=== PATIENT | female | born 1955 | race Caucasian/White ===

== ENCOUNTER 2017-01-25 16:04 | Emergency (ER) | payer OTHER ==
--- NOTE | 2017-01-25 16:22 | EDPHY ---
H & P Stated Complaint: red swollen feet Time Seen by Provider: 01/25/17 16:20 HPI/ROS: CHIEF COMPLAINT: Left foot redness and swelling HISTORY OF PRESENT ILLNESS: 61-year-old female presents to the emergency department complaining of foot redness and swelling that started while she was at work yesterday. Patient states she woke up this morning with continued symptoms that have worsened throughout the day. Foot is aching and burning. She reports pain up her calf. Patient reports 2 days of fatigue, mild nausea. She denies shortness of breath or chest pain. Patient went to urgent care prior to coming to the emergency department and states she had a temperature of a 100degrees at Urgent Care. She denies recent cough or cold. Patient noticed a rash to the top of her right foot today. Patient with a history of sarcoidosis , hypertension, type 2 diabetes, uterine cancer. She is on oxygen at night. Patient denies orthopnea. Patient reports she was driving in [place] 4 days ago and played [employer] golf. Pt denies any known tick or bug bites. REVIEW OF SYSTEMS: A comprehensive 10 point review of systems is otherwise negative aside from elements mentioned in the history of present illness. Source: Patient Exam Limitations: No limitations - Personal History Current Tetanus/Diphtheria Vaccine: Unsure Current Tetanus Diphtheria and Acellular Pertussis (TDAP): Unsure - Medical/Surgical History Hx Asthma: No Hx Chronic Respiratory Disease: No Hx Diabetes: Yes Hx Cardiac Disease: No Hx Renal Disease: No Hx Cirrhosis: No Hx Alcoholism: No Hx HIV/AIDS: No Hx Splenectomy or Spleen Trauma: No Other PMH: sarcoidosis, DM2 uterineCA, cataracts , HTN - Social History Smoking Status: Never smoked Alcohol Use: None Drug Use: None - Physical Exam Exam: Physical Exam Gen: Alert and Oriented, NAD HEENT: PERRL, moist mucous membranes NECK: no meningismus CV: regular rate and regular rhythm PULM: CTAB, no wheezes ABDOMEN: Morbidly obese, soft, non tender to palpation, BS present BACK: No CVA tenderness NEURO: Neurologically grossly intact EXTREMITIES: Left foot with swelling, induration, erythema, warmth, tender to palpate, left calf with tenderness to palpation, 2+ pedal pulses, sensation intact to light touch, dorsal distal aspect of right foot with petechial rash, no calf swelling or tenderness, 2+ pedal pulses. SKIN: no rash or break in skin on exposed skin PSYCH: answers questions appropriately. Constitutional: Initial Vital Signs Temperature (C) 36.9 C 01/25/17 16:08 Heart Rate 88 01/25/17 16:08 Respiratory Rate 16 01/25/17 16:08 Blood Pressure 102/70 01/25/17 16:08 O2 Sat (%) 93 01/25/17 16:08 O2 Delivery Mode Room Air Allergies/Adverse Reactions: terfenadine [From Seldane] Allergy (Unknown, Verified 10/04/12 10:59) amoxicillin trihydrate [From Augmentin] Allergy (Verified 10/04/12 10:59) Itching potassium clavulanate [From Augmentin] Allergy (Verified 10/04/12 10:59) Itching Home Medications: Medication Instructions Recorded Acetaminophen [Pain Relief] 500 - 1,000 mg PO Q4 PRN 10/05/12 Bisoprolol Fumarate 10 mg PO DAILY@199910/05/12 Calcium Carbonate [Tums 500MG 500 mg PO DAILY PRN 10/05/12 (OTC)] Cholecalciferol Vit D3 [Vitamin D3 5,000 units PO DAILY 10/05/12 1000 units (OTC)] DULoxetine [Cymbalta 30 MG (RX)] 30 mg PO DAILY@1700 10/05/12 Referral Management Liaison Completed 10/05/12 10/05/12 Rosuvastatin Calcium [Crestor 20mg 20 mg PO DAILY@2330 10/05/12 (RX)] Saxagliptin HCl/Metformin HCl 1 each PO DAILY@0900 10/05/12 [Kombiglyze Xr 5-1,000 Mg Tab] Triamterene/Hctz 75/50 [Maxzide 0.5 tab PO DAILY@199910/05/12 75-50 mg Tab (RX)] Cephalexin [Keflex] 500 mg PO QID 5 Days 01/25/17 Medical Decision Making - Diagnostics Imaging Results: Imaging Impressions Extremity Venous Study 01/25/17 16:37 Impression: No evidence of deep vein thrombosis. Findings discussed with Mahnaz George NP 01/25/2017 at 17:58. Imaging: Discussed imaging studies w/ inbound call center agent Radiologist ED Course/Re-evaluation: IV established, CBC and chemistry panel obtained, ultrasound of left lower extremity ordered. WBC is mildly elevated at 11,000 thousand, platelets are normal. Chemistry is unremarkable aside from a glucose that is elevated at 232. Patient is afebrile , nontoxic-appearing. I spoke with Dr. Lan with Radiology, ultrasound of the left lower extremity is negative for DVT. I have ordered 650 mg of Tylenol orally. The patient received a g of Ancef IV in the emergency department and was discharged with a prescription for Keflex. She has no evidence of [place] spotted fever or disseminated gonococcal infection. The rash on the dorsal aspect of her feet is likely due to pressure from her shoes and her obesity. I have recommended rest, elevation of her legs. Patient will follow up with her primary care doctor in 2 days for re- evaluation. She is given return precautions for worsening symptoms, new symptoms or concerns. Differential Diagnosis: Diagnosis considered but not limited to DVT, cellulitis, CHF, vasculitis, fracture, Bob cyst. - Data Points Laboratory Results: Laboratory Results 01/25/17 16:55 01/25/17 16:55 01/25/17 01/25/17 16:55 16:55 WBC 11.47 10^3/uL H 10^3/uL (3.80-9.50) RBC 4.43 10^6/uL 10^6/uL (4.18-5.33) Hgb 13.7 g/dL g/dL (12.6-16.3) Hct 40.5 % % (38.0-47.0) MCV 91.4 fL fL (81.5-99.8) MCH 30.9 pg pg (27.9-34.1) MCHC 33.8 g/dL g/dL (32.4-36.7) RDW 13.0 % % (11.5-15.2) Plt Count 358 10^3/uL 10^3/uL (150-400) MPV 9.2 fL fL (8.7-11.7) Neut % (Auto) 69.3 % % (39.3-74.2) Lymph % (Auto) 20.6 % % (15.0-45.0) [place] % (Auto) 7.3 % % (4.5-13.0) Eos % (Auto) 2.1 % % (0.6-7.6) Baso % (Auto) 0.3 % % (0.3-1.7) Nucleat RBC Rel Count 0.0 % % (0.0-0.2) Absolute Neuts (auto) 7.94 10^3/uL H 10^3/uL (1.70-6.50) Absolute Lymphs (auto) 2.36 10^3/uL 10^3/uL (1.00-3.00) Absolute Monos (auto) 0.84 10^3/uL H 10^3/uL (0.30-0.80) Absolute Eos (auto) 0.24 10^3/uL 10^3/uL (0.03-0.40) Absolute Basos (auto) 0.04 10^3/uL 10^3/uL (0.02-0.10) Absolute Nucleated RBC 0.00 10^3/uL 10^3/uL (0-0.01) Immature Gran % 0.4 % % (0.0-1.1) Immature Gran # 0.05 10^3/uL 10^3/uL (0.00-0.10) Sodium 136 mEq/L mEq/L (134-144) Potassium 4.1 mEq/L mEq/L (3.5-5.2) Chloride 99 mEq/L mEq/L (97-110) Carbon Dioxide 22 mEq/l mEq/l (22-31) Anion Gap 15 mEq/L mEq/L (8-16) BUN 17 mg/dL mg/dL (7-23) Creatinine 0.6 mg/dL mg/dL (0.6-1.0) Estimated GFR > 60 Glucose 232 mg/dL H mg/dL (70-100) Calcium 10.0 mg/dL mg/dL (8.5-10.4) Departure - Departure Disposition: Home, Routine, Self-Care Clinical Impression: Cellulitis of left foot Condition: Good Instructions: Cellulitis (ED) Additional Instructions: Rest, elevate your foot as much as possible over the next 5 days. Take 500mg of keflex four times per day for 5 days. Follow up with your primary care doctor on Monday for re-evaluation, call tomorrow to schedule this. Return to the emergency department for worsening symptoms, new symptoms or concerns. Referrals: Tamara Jama MD [Primary Care Provider] - As per Instructions Stand Alone Forms: Work Excuse Prescriptions: Cephalexin [Keflex] 500 mg PO QID 5 Days
[2017-01-25 17:06] LABS: % IMMATURE GRANULYOCYTES 0.4 % (0.0-1.1); ABSOLUTE IMMATURE GRANULOCYTES 0.05 10^3/uL (0.00-0.10); ADD DIFF? NO; ADD MORPH? NO; ADD SCAN? NO; ATYPICAL LYMPHOCYTE FLAG 0 (0-99); FRAGMENT RBC FLAG 0 (0-99); HEMATOCRIT 40.5 % (38.0-47.0); HEMOGLOBIN 13.7 g/dL (12.6-16.3); LEFT SHIFT FLG 0 (0-99); LIPEMIA HEMOLYSIS FLAG 90 (0-99); MEAN CELL HEMOGLOBIN 30.9 pg (27.9-34.1); MEAN CELL HEMOGLOBIN CONCENTR. 33.8 g/dL (32.4-36.7); MEAN CELL VOLUME 91.4 fL (81.5-99.8); MEAN PLATELET VOLUME 9.2 fL (8.7-11.7); PLATELET CLUMPS FLAG 10 (0-99); PLATELET COUNT 358 10^3/uL (150-400); RED BLOOD CELL COUNT 4.43 10^6/uL (4.18-5.33)
[2017-01-25 17:35] LABS: ANION GAP 15 mEq/L (8-16); CARBON DIOXIDE 22 mEq/l (22-31); CHLORIDE 99 mEq/L (97-110); CREATININE 0.6 mg/dL (0.6-1.0); GLOMERULAR FILTRATION RATE > 60; GLUCOSE 232 mg/dL (70-100); POTASSIUM 4.1 mEq/L (3.5-5.2); SODIUM 136 mEq/L (134-144)
[2017-01-25] MEDS ORDERED: ACETAMINOPHEN 325 MG TAB PO ONE (18:33)
[2017-01-25] MEDS: ONDANSETRON DISINTEGRATING 4 MG TAB PO ONE ×2 (19:05→19:06)
[2017-01-25 19:19] VITALS: BP 143/67; PULSE 78; RESP 20; TEMP 98.2; O2SAT 95
== END 2017-01-25 19:18 | disposition home or self-care (01) ==
DX: L03.116 Cellulitis of left lower limb (principal); E11.9 Type 2 diabetes mellitus without complications; I10 Essential (primary) hypertension; Z85.42 Personal history of malignant neoplasm of other parts of uterus
CPT/HCPCS: 96374; J0690

== ENCOUNTER 2017-01-27 12:17 | Observation (INO) | payer OTHER ==
--- NOTE | 2017-01-27 13:09 | EDPHY ---
H & P Stated Complaint: Here 2 days ago;sent for tx by PCP worsening infect L foot Time Seen by Provider: 01/27/17 12:50 HPI/ROS: CHIEF COMPLAINT: Foot infection, malaise HISTORY OF PRESENT ILLNESS: The patient is a 61 y/o female with a history of diabetes arriving at the referral of urgent care for a worsening left foot infection over the last few days. She first noticed erythema along the top of her foot, but this has since spread to her toes and ankle. She cannot identify preceding trauma or other event. She was seen here 2 days ago and received IV Ancef for cellulitis and was discharged on Keflex. She's has not measured fever at home, but does feel hot with general malaise, weakness, loss of appetite, headache, nausea, watery diarrhea, and a racing heart rate. She is able to walk , but with pain and describes "crackling" in her ankle when it's flexed. She notes she also has a rash on her right foot. Her BGL has been running as high as 299 since her symptoms started. REVIEW OF SYSTEMS: Constitutional: see HPI Eyes: No visual changes ENT: No sore throat Respiratory: No cough, no shortness of breath Cardiac: No chest pain Gastrointestinal: No nausea, no vomiting, no abdominal pain Genitourinary: No hematuria, no dysuria Musculoskeletal: No leg pain or swelling Skin: see HPI Neurological: No headache, no numbness, no weakness Psychiatric: No depression - Personal History Current Tetanus Diphtheria and Acellular Pertussis (TDAP): Unsure - Medical/Surgical History PMH: PMH includes: 1. Diabetes 2. Sarcoidosis 3. Uterine cancer with hysterectomy 4. Bilateral cataract surgery Hx Asthma: No Hx Chronic Respiratory Disease: No Hx Diabetes: Yes Hx Cardiac Disease: No Hx Renal Disease: No Hx Cirrhosis: No Hx Alcoholism: No Hx HIV/AIDS: No Hx Splenectomy or Spleen Trauma: No Other PMH: sarcoidosis, DM2 uterineCA, cataracts , HTN - Social History Smoking Status: Never smoked Additional Social History: Nonsmoker. at bedside. - Physical Exam Exam: General Appearance: Alert, appears fatigued, obese Eyes: Pupils equal and round, no conjunctival pallor or injection ENT, Mouth: Mucous membranes moist Neck: Normal inspection Respiratory: Lungs are clear to auscultation Cardiovascular: Regular rate and rhythm Gastrointestinal: Abdomen is soft and non- tender Neurological: A&O, nonfocal, normal gait Skin: Warm and dry, no rash Extremities: Right foot: petechia on dorsal aspect. Left foot: tenderness, erythema, and swelling to dorsum that extends over medial and lateral malleolus. Pain with ROM. Psychiatric: Mood and affect normal Constitutional: Initial Vital Signs Temperature (C) 36.7 C 01/27/17 12:19 Heart Rate 75 01/27/17 12:19 Respiratory Rate 18 01/27/17 12:19 Blood Pressure 124/63 H 01/27/17 12:19 O2 Sat (%) 93 01/27/17 12:19 O2 Delivery Mode Room Air Allergies/Adverse Reactions: amoxicillin trihydrate [From Augmentin] Allergy (Severe, Verified 01/27/17 12:23 ) throat swells potassium clavulanate [From Augmentin] Allergy (Mild, Verified 01/27/17 12:23) Itching terfenadine [From Seldane] Allergy (Unknown, Verified 01/27/17 12:23) Home Medications: Medication Instructions Recorded Bisoprolol Fumarate 10 mg PO HS 10/05/12 Calcium Carbonate [Tums 500MG (*)] 500 mg PO DAILY PRN 10/05/12 Acetaminophen [Tylenol ES 500 mg 500 mg PO DAILY PRN 01/27/17 (*)] Citalopram Hydrobromide 40 mg PO HS 01/27/17 [Citalopram HBr] Rosuvastatin Calcium [Crestor 40mg 40 mg PO HS 01/27/17 (*)] Triamterene/Hydrochlorothiazid 1 each PO HS 01/27/17 [Triamterene-Hctz 37.5-25 mg Tb] glipiZIDE [Glucotrol] 20 mg PO BID 01/27/17 metFORMIN HCL [Glucophage 1000 mg] 1,000 mg PO BIDMEAL 01/27/17 metFORMIN HCL [Glucophage 500 mg 500 mg PO DAILY@12 01/27/17 (*)] Medical Decision Making - Diagnostics Imaging Results: Foot X-Ray 01/27/17 13:12 Impression: 1. Disruption of the medial Lisfranc joint at the great toe tarsometatarsal junction. 2. Acute displaced fractures involving the second and third mid-metatarsal diaphyses. A hairline fracture through the metaphyseal base of the second metatarsal is also not excluded. Imaging: Discussed imaging studies w/ yard caller Radiologist, I viewed and interpreted images myself Procedures: Orthoglass posterior splint placed by the ocular care technician (once the pt was admitted). I did not examine this pt after splint placement. ED Course/Re-evaluation: This is a 61 y/o female who presents with worsening malaise and left foot erythema and pain following a diagnosis of cellulitis 2 days ago. She has already received IV Ancef and Keflex without improvement. She has systemic symptoms that seem to be worsening along with spreading erythema, tenderness, and edema along her left foot and ankle. Plan for IV, infectious work up, antibiotics, x-ray, and admission for worsening cellulitis. 1gm IV Vancomycin administered. Spoke with hospitalist service. Dr. Howard accepts admission for cellulitis. Patient has an elevated lactate of 3.2. She does not meet SIRS criteria. 1L IV NS administered and repeat lactate ordered. X-ray shows Lisfranc-like fracture with 2nd and 3rd metatarsal fractures. I reassessed patient and discussed findings. She continues to deny any preceding trauma. Foot CT ordered to better evaluate fractures. Patient will be placed in posterior splint. 1505: Consulted with Dr. Carlin's OR nurse, orthopedist. He will consult on this pt. This pt left the ED prior to splint placement and prior to repeat lactate. The ocular care technician placed the splint and sent a repeat lactate, once the pt was admitted to the floor bed. Differential Diagnosis: includes though not limited to osteomyelitis, open fx, abscess, necrotizing fasciitis - Data Points Laboratory Results: Laboratory Results 01/27/17 13:12 01/27/17 13:12 Microbiology Results: MICROBIOLOGY 01/27/17 13:12 Blood Blood Culture - Preliminary 01/27/17 13:00 Blood Blood Culture - Preliminary Medications Given: Discontinued Medications Acetaminophen (Tylenol) 650 mg PO Q4HRS PRN PRN Reason: Pain, Mild/Fever, Can Take PO Stop: 07/26/17 16:01 Last Admin: 01/28/17 09:42 Dose: 650 mg Bisoprolol Fumarate (Zebeta) 10 mg PO HS BESSY Stop: 07/26/17 20:59 Last Admin: 01/27/17 20:01 Dose: 10 mg Citalopram Hydrobromide (Celexa) 40 mg PO HS BESSY Stop: 07/26/17 20:59 Last Admin: 01/27/17 20:02 Dose: 40 mg Glipizide (Glucotrol) 20 mg PO BID COUNT INCLUDES THE [facility] Stop: 07/26/17 20:59 Last Admin: 01/28/17 08:29 Dose: 20 mg Vancomycin/Sodium Chloride (Vancomycin 1 Gm (Premix)) 250 mls @ 250 mls/hr IV EDNOW ONE PRN Reason: Protocol Stop: 01/27/17 14:12 Last Admin: 01/27/17 14:04 Dose: 250 mls Sodium Chloride (Ns) 1,000 mls @ 0 mls/hr IV ONCE ONE; Wide Open PRN Reason: Protocol Stop: 01/27/17 14:21 Last Admin: 01/27/17 16:11 Dose: Not Given Sodium Chloride (Ns) 1,000 mls @ 0 mls/hr IV ONCE ONE PRN Reason: Wide Open Stop: 01/27/17 15:06 Last Admin: 01/27/17 16:18 Dose: 1,000 mls Insulin Human Lispro (Humalog Lispro) 0 unit SC TIDMEAL BESSY PRN Reason: Protocol Stop: 07/26/17 17:59 Last Admin: 01/28/17 12:39 Dose: 2 units Metformin HCl (Glucophage) 500 mg PO DAILY@12 COUNT INCLUDES THE [facility] Stop: 07/27/17 11:59 Last Admin: 01/28/17 12:39 Dose: 500 mg Metformin HCl (Glucophage) 1,000 mg PO BIDMEAL COUNT INCLUDES THE [facility] Stop: 07/26/17 17:59 Last Admin: 01/28/17 08:29 Dose: 1,000 mg Ondansetron HCl (Zofran Odt) 4 mg PO Q4HRS PRN PRN Reason: Nausea/Vomiting, Use 1st Stop: 07/26/17 16:01 Last Admin: 01/28/17 01:15 Dose: 4 mg Rosuvastatin Calcium (Crestor) 40 mg PO HS COUNT INCLUDES THE [facility] Stop: 07/26/17 20:59 Last Admin: 01/27/17 20:02 Dose: 40 mg Departure - Departure Disposition: [facility] Acute Clinical Impression: Cellulitis of left foot Metatarsal fracture Qualifiers: Encounter type: initial encounter Metatarsal bone: second Fracture type: closed Fracture alignment: displaced Laterality: left Qualified Code(s): S92.322A - Displaced fracture of second metatarsal bone, left foot, initial encounter for closed fracture Condition: Good Report Scribed for: Octavia Wen Report Scribed by: Judit Pete Date of Report: 01/27/17 Time of Report: 13:09 Physician Review and Approval Statement: 01/27/17 13:09 Portions of this note were transcribed by a medical malpractice paralegal. I personally performed a history, physical exam, medical decision making, and confirmed accuracy of information the transcribed note.
[2017-01-27] MEDS ORDERED: VANCOMYCIN HCL/NORMAL SALINE 250 ML IV ONE (13:13)
[2017-01-27 13:33] LABS: % IMMATURE GRANULYOCYTES 0.4 % (0.0-1.1); ABSOLUTE IMMATURE GRANULOCYTES 0.04 10^3/uL (0.00-0.10); ADD DIFF? NO; ADD MORPH? NO; ADD SCAN? NO; ATYPICAL LYMPHOCYTE FLAG 0 (0-99); FRAGMENT RBC FLAG 0 (0-99); HEMATOCRIT 40.4 % (38.0-47.0); HEMOGLOBIN 13.6 g/dL (12.6-16.3); LEFT SHIFT FLG 0 (0-99); LIPEMIA HEMOLYSIS FLAG 80 (0-99); MEAN CELL HEMOGLOBIN 31.1 pg (27.9-34.1); MEAN CELL HEMOGLOBIN CONCENTR. 33.7 g/dL (32.4-36.7); MEAN CELL VOLUME 92.4 fL (81.5-99.8); MEAN PLATELET VOLUME 9.4 fL (8.7-11.7); PLATELET CLUMPS FLAG 0 (0-99); PLATELET COUNT 396 10^3/uL (150-400); RED BLOOD CELL COUNT 4.37 10^6/uL (4.18-5.33)
[2017-01-27 13:46] LABS: ANION GAP 18 mEq/L (8-16); CALCIUM 9.3 mg/dL (8.5-10.4); CARBON DIOXIDE 21 mEq/l (22-31); CHLORIDE 100 mEq/L (97-110); CREATININE 0.8 mg/dL (0.6-1.0); GLOMERULAR FILTRATION RATE > 60; GLUCOSE 264 mg/dL (70-100); POTASSIUM 3.8 mEq/L (3.5-5.2); SODIUM 139 mEq/L (134-144)
[2017-01-27] MEDS ORDERED: NS 1,000 ML IV ONE ×2 (14:20→15:05)
[2017-01-27] MEDS ORDERED: ONDANSETRON DISINTEGRATING 4 MG TAB PO PRN (16:02)
[2017-01-27] MEDS ORDERED: ONDANSETRON 4 MG/2 ML VIAL IVP PRN (16:02)
[2017-01-27] MEDS ORDERED: D50W 25 GM/50 ML SYR IVP PRN (16:08)
[2017-01-27] MEDS ORDERED: NS 1,000 ML IV SCH (16:15)
--- NOTE | 2017-01-27 17:07 | GHP ---
[f rep st] HISTORY AND PHYSICAL DATE OF ADMISSION: 01/27/2017 CHIEF COMPLAINT: Left foot pain. HISTORY OF PRESENT ILLNESS: This is a 61-year-old female with a history of type 2 diabetes. Over t he last several days, she has been having increasing left foot pain. She also feels a little bit of a crunching noise when she walks. She has not had any preceding trauma. She was seen in the emerg ency department 2 days ago, received IV Ancef and has been on Keflex since then. She does not have any fevers or chills. Her blood sugars have been a little bit high as well. REVIEW OF SYSTEMS: A 10-point review of systems was obtained and was negative. PAST MEDICAL HISTORY: 1. Type 2 diabetes, for which she is now seeing an manager inventory management and was supposed to start on ins ulin. 2. History of sarcoid diagnosed several years ago, with no real followup. This was a skin manifest ation predominantly. 3. History of uterine cancer. 4. Bilateral cataract surgery. MEDICATIONS: Reviewed. SOCIAL HISTORY: No smoking or alcohol. 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 FAMILY HISTORY: Reviewed and noncontributory. PHYSICAL EXAMINATION: VITAL SIGNS: Afebrile. Blood pressure is 120/82, heart rate 90, oxygen satu ration 92% on room air. GENERAL: The patient is well-developed, well-nourished, in no apparent dis tress. HEENT: Nonicteric sclerae. Extraocular movements intact. Moist mucous membranes. NECK: Supple. No thyromegaly. LUNGS: Good effort. Clear to auscultation bilaterally. CARDIOVASCULAR: Regular rate and rhythm. No murmurs, rubs or gallops. ABDOMEN: Positive bowel sounds, soft, nont valente, nondistended. No hepatosplenomegaly. EXTREMITIES: The left foot shows significant swelling , but with localized erythema to the distal aspect of her foot. There is some warmth as well. No u lcerations. NEUROLOGIC: Alert and oriented x3. Moving all 4 extremities equally. PSYCH: Normal affect. LABS: White blood cell count is 10, hemoglobin is normal. Chemistry is essentially normal. Lactat e is elevated at 3.2. IMAGING: Foot x-ray suggests a fracture. Lower extremity CT shows a displaced fracture to the base of the 1st metatarsal and the mid to distal diaphysis of the 2nd and 3rd metatarsals, and also dege nerative changes in the left foot that could represent Charcot arthropathy. ASSESSMENT AND PLAN: This is a 61-year-old female presenting with a displaced left foot fracture. 1. Left foot fracture. It is a little unusual that the patient has not had any preceding trauma th at she can remember. I have a call out to Orthopedic Surgery and the surgeon skin lap bonder is a foot spec ialist. I do not think this represents cellulitis. I think she has significant inflammation from t he fracture, especially since she has been weightbearing with this fracture for the last several day s. I am going to discontinue the antibiotics and follow the appearance of her foot. 2. Type 2 diabetes. Will continue sliding scale insulin as well as her oral medications. 3. History of sarcoid. She probably should be followed up on this. I will check a vitamin D level because of her fracture. The patient will be admitted to observation status. The case was discussed with Orthopedic Surgery. Because of the significant amount of swelling, I probably do not think that she is going to be ope rated on here. Probably can discharge tomorrow with nonweightbearing status and follow up with Orth opedic Surgery. /[id number]/MODL
[2017-01-27] MEDS: INSULIN LISPRO 100 UNIT/ML SC SCH (18:19)
[2017-01-27] MEDS: metFORMIN HCL 500 MG TAB PO SCH (18:20)
[2017-01-27] MEDS: glipiZIDE 10 MG TAB PO SCH (20:01)
[2017-01-27] MEDS: ACETAMINOPHEN 325 MG TAB PO PRN (20:09)
[2017-01-27] MEDS ORDERED: CITALOPRAM 20 MG TAB PO SCH (21:00)
[2017-01-27] MEDS ORDERED: BISOPROLOL FUMARATE 5 MG TAB PO SCH (21:00)
[2017-01-27] MEDS ORDERED: ROSUVASTATIN CALCIUM 40 MG TAB PO SCH (21:00)
[2017-01-28 04:40] LABS: % IMMATURE GRANULYOCYTES 0.4 % (0.0-1.1); ABSOLUTE IMMATURE GRANULOCYTES 0.04 10^3/uL (0.00-0.10); ADD DIFF? NO; ADD MORPH? NO; ADD SCAN? NO; ATYPICAL LYMPHOCYTE FLAG 0 (0-99); FRAGMENT RBC FLAG 0 (0-99); HEMATOCRIT 37.9 % (38.0-47.0); HEMOGLOBIN 12.5 g/dL (12.6-16.3); LEFT SHIFT FLG 0 (0-99); LIPEMIA HEMOLYSIS FLAG 80 (0-99); MEAN CELL HEMOGLOBIN 30.8 pg (27.9-34.1); MEAN CELL VOLUME 93.3 fL (81.5-99.8); MEAN PLATELET VOLUME 9.1 fL (8.7-11.7); PLATELET CLUMPS FLAG 0 (0-99); PLATELET COUNT 393 10^3/uL (150-400); RED BLOOD CELL COUNT 4.06 10^6/uL (4.18-5.33); RED CELL DISTRIBUTION WIDTH 12.7 % (11.5-15.2)
[2017-01-28 04:54] LABS: ANION GAP 10 mEq/L (8-16); CALCIUM 8.8 mg/dL (8.5-10.4); CARBON DIOXIDE 26 mEq/l (22-31); CHLORIDE 104 mEq/L (97-110); CREATININE 0.6 mg/dL (0.6-1.0); GLOMERULAR FILTRATION RATE > 60; GLUCOSE 174 mg/dL (70-100); POTASSIUM 3.7 mEq/L (3.5-5.2); SODIUM 140 mEq/L (134-144)
[2017-01-28] MEDS: ACETAMINOPHEN 325 MG TAB PO PRN ×2 (05:42→09:42)
--- NOTE | 2017-01-28 07:13 | GCON ---
[f rep st] CONSULTATION DATE OF CONSULTATION: 01/27/2017 CHIEF COMPLAINT: Left foot fracture. HISTORY OF PRESENT ILLNESS: This is a 61-year-old female with significant type 2 diabetes. States she began having pain about 3 days ago in her foot. She denies any specific trauma but did notice s ome crunching sounds when she walked. This was painful to her. She noticed persistent swelling and redness that would not get better. She was initially seen in the ER 2 days ago and received antibi otics, but did not improve. She was then sent back to the ER today by her primary care physician karolina boyd the fracture was diagnosed and she was placed in a splint. She has been nonweightbearing since she has been admitted and elevating this. She denies other fractures in her feet. She denies havin g been diagnosed with neuropathy. She says she does have some decreased sensation in her feet. She denies ever having ulcerations. REVIEW OF SYSTEMS: A 10-point review of systems is negative other than above. PAST MEDICAL HISTORY: Type 2 diabetes, last A1c was over 10. History of sarcoid uterine cancer. B ilateral cataract. MEDICATIONS: Reviewed in the system, please see [facility] system. SOCIAL HISTORY: No smoking or alcohol. FAMILY HISTORY: Really noncontributory. PHYSICAL EXAM: GENERAL: She is alert, oriented, appropriate, in no acute distress. VITAL SIGNS: Stable. IN GENERAL: She is well-developed and well-nourished, in no apparent distress. HEENT: She has atraumatic head. Eyes are equal, reactive. Moist mucous membranes. NECK: Supple. LUNGS: G ood effort. CARDIOVASCULAR: Regular rate and rhythm. ABDOMEN: Soft. EXTREMITIES: Right lower ex tremity shows no swelling. She has good mobility no areas of tenderness. She does have decreased s ensation in her toes, is unable to identify which toe I am touching with her eyes closed. On the left I did take out her splint. She is significantly swollen. She has some erythema, which se emed to be somewhat dependent. She does have good cap refill. It is difficult to feel pulses. She has decreased sensation in the entire foot. She has minimal pain when I press on her 2nd and 3rd m etatarsals. She has no pain over the 1st TMT joint. IMAGING: Her foot x-rays show fractures of the 2nd and 3rd metatarsals. No subluxation of the 1st TMT joint. CT scan confirms this, the 1st TMT joint. It does appear to be chronic in nature. ASSESSMENT: 1. Charcot arthropathy. 2. Diabetic neuropathy. 3. Type 2 diabetes. 4. Second and third metatarsal fractures. 5. First tarsometatarsal joint dislocation and degenerative joint disease. PLAN: I discussed her condition and treatment options. She is undoubtedly neuropathic. This does represent a Charcot-like process with the fact this occurred with a minor trauma and the appearance of the 1st tarsometatarsal joint. We will make her non-weight bearing. We have her in a splint. Will use compression. She will elev ate and ice this as much as possible to help with the swelling. When her swelling is acceptable in likely a week to 10 days, I plan on ORIF of the 2nd and 3rd metatarsals as they are quite displaced as well as a fusion of the 1st tarsometatarsal joint. We will follow her along to follow her swell ing. She can be taken off antibiotics as I do not believe this represents infection. /[id number]/MODL
[2017-01-28 07:22] VITALS: TEMP 98.4
[2017-01-28] MEDS: INSULIN LISPRO 100 UNIT/ML SC SCH ×2 (08:28→12:39)
[2017-01-28] MEDS: metFORMIN HCL 500 MG TAB PO SCH (08:29)
[2017-01-28] MEDS: glipiZIDE 10 MG TAB PO SCH (08:29)
--- NOTE | 2017-01-28 09:25 | SOAPPROG ---
SOAP Progress Note Assessment/Plan: Assessment: Left foot nueropathic 2nd and 3rd MT fx and 1st TMT subluxation Plan: NWB LLE elevate ice I will see her monday in clinic for swelling check and potenial orif next week she has my card to make appt 01/28/17 09:24 Subjective: min pain Objective: Vital Signs Temp Pulse Resp BP Pulse Ox 36.9 C 69 20 129/69 H 98 01/28/17 07:19 01/28/17 07:19 01/28/17 07:19 01/28/17 07:19 01/28/17 07:19 Laboratory Results 01/28/17 04:24 01/28/17 04:24 01/27/17 01/28/17 01/29/17 05:59 05:59 05:59 Intake Total 950 Balance 950 swelling improved erythema resolving ICD10 Worksheet Patient Problems: Problems Problem Status Onset Cellulitis of left foot Acute
[2017-01-28 11:46] VITALS: BP 136/84; PULSE 79; RESP 24; O2SAT 89
[2017-01-28] MEDS ORDERED: metFORMIN HCL 500 MG TAB PO SCH (12:00)
--- NOTE | 2017-01-28 21:50 | GDS ---
[f rep st] DISCHARGE SUMMARY DISCHARGE DIAGNOSES: 1. 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 2. History of diabetes mellitus. 3. History of sarcoid. CONSULTATIONS: Dr. Carlin of Orthopedics. STUDIES AND PROCEDURES DONE: CT of the extremity. PHYSICAL EXAMINATION: GENERAL: The patient is alert. VITAL SIGNS: Afebrile at 36.9, pulse is 79, respiratory rate is 20, blood pressure is 136/84. She is saturating greater than 90% on room air. I have seen and evaluated the patient on the day of discharge. HOSPITAL COURSE: The patient is a 61-year-old female, who presented to the hospital complaining of left foot pain. She had recently been diagnosed with cellulitis and treated with antibiotic therapy . During this hospital course, her left foot was evaluated with a CT scan. CT scan demonstrated ne uropathic 2nd and 3rd metatarsal fractures, as well as subluxation. Dr. Carlin of Orthopedics consu lted during the patient's hospitalization. Due to the swelling, the patient will require rest for 1 0-14 days prior to surgical intervention. She will be discharged home to follow up in the outpatien t setting with Dr. Carlin for scheduled surgical intervention. DISCHARGE MEDICATIONS: I have continued all of her previously prescribed home medications. She has not been provided any prescriptions at the time of disposition. FOLLOWUP: Follow up will be with Dr. Carlin on 01/30/2017, as well as the patient's primary care ph ysician. I have discussed the patient's disposition at length with Physical Therapy, as well as the nurse. PENDING STUDIES: None. /[id number]/MODL
== END 2017-01-28 15:05 | disposition home or self-care (01) ==
LOC: INTOOBSV 13:32 → F3E 15:03
PROVIDERS: ADMIT Internal Medicine; ATTEND Internal Medicine
PROC: 2W3TX1Z Immobilization of Left Foot using Splint (ICD-10-PCS; principal; 2017-01-27)
DX: S92.322A Displaced fracture of second metatarsal bone, left foot, initial encounter for closed fracture (principal); S92.332A Displaced fracture of third metatarsal bone, left foot, initial encounter for closed fracture; S93.322A Subluxation of tarsometatarsal joint of left foot, initial encounter; M14.672 Charcot's joint, left ankle and foot; E11.40 Type 2 diabetes mellitus with diabetic neuropathy, unspecified; I10 Essential (primary) hypertension; Z85.42 Personal history of malignant neoplasm of other parts of uterus; Z87.39 Personal history of other diseases of the musculoskeletal system and connective tissue; Z88.0 Allergy status to penicillin; X58.XXXA Exposure to other specified factors, initial encounter
CPT/HCPCS: 73630; 73700; 97116; 97162; 97166; 97530; G0378; 96365; J1815; J2405; J3370

== ENCOUNTER 2017-01-31 07:20 | Observation (INO) | payer OTHER ==
--- NOTE | 2017-01-31 07:19 | PDANEPAE ---
ANE Past Medical History - Cardiovascular History Hx Hypertension: Yes Hx Arrhythmias: No Hx Chest Pain: No Hx Coronary Artery / Peripheral Vascular Disease: No Hx CHF / Valvular Disease: No Hx Palpitations: No Cardiovascular History Comment: MURMUR. HYPERLIPIDEMIA - Pulmonary History Hx COPD: No Hx Asthma/Reactive Airway Disease: No Hx Recent Upper Respiratory Infection: No Hx Oxygen in Use at Home: Yes O2 in Use at Home (L/minute): NOC O2 @2L Hx Sleep Apnea: No Sleep Apnea Screening Result - Last Documented: Positive Pulmonary History Comment: POS ANTOINETTE - NO CPAP. SARCOIDOSIS - Neurologic History Hx Cerebrovascular Accident: No Hx Seizures: No Hx Dementia: No Neurologic History Comment: MIGRAINES IN PAST - Endocrine History Hx Diabetes: Yes Hypothyroid: No Hyperthyroid: No Obesity: severe Endocrine History Comment: DM II - Renal History Hx Renal Disorders: No - Liver History Hx Hepatic Disorders: No - Neurological & Psychiatric Hx Hx Neurological and Psychiatric Disorders: No - Cancer History Hx Cancer: No Cancer History Comment: CANCER UTERINE - Congenital Disorder History Hx Congenital Disorders: No - GI History Hx Gastrointestinal Disorders: Yes Gastrointestinal History Comment: ACID REFLUX - Other Health History Other Health History: NEG - Chronic Pain History Chronic Pain: No - Surgical History Prior Surgeries: HYSTERECTOMY. CATARACTS ANE Review of Systems - Exercise capacity METS (RN): 4 METS ANE Patient History - Allergies Allergies/Adverse Reactions: amoxicillin trihydrate [From Augmentin] Allergy (Severe, Verified 01/27/17 12:23 ) throat swells potassium clavulanate [From Augmentin] Allergy (Mild, Verified 01/27/17 12:23) Itching terfenadine [From Seldane] Allergy (Unknown, Verified 01/27/17 12:23) - Home Medications Home Medications: Bisoprolol Fumarate 10 mg PO HS 10/05/12 [Last Taken 01/26/17] Calcium Carbonate [Tums 500MG (*)] 500 mg PO DAILY PRN 10/05/12 [Last Taken Unknown] Acetaminophen [Tylenol ES 500 mg (*)] 500 mg PO DAILY PRN 01/27/17 [Last Taken Unknown] Citalopram Hydrobromide [Citalopram HBr] 40 mg PO HS 01/27/17 [Last Taken ] Rosuvastatin Calcium [Crestor 40mg (*)] 40 mg PO HS 01/27/17 [Last Taken ] Triamterene/Hydrochlorothiazid [Triamterene-Hctz 37.5-25 mg Tb] 1 each PO HS [Last Taken 01/26/17] glipiZIDE [Glucotrol] 20 mg PO BID 01/27/17 [Last Taken 01/27/17] metFORMIN HCL [Glucophage 1000 mg] 1,000 mg PO BIDMEAL 01/27/17 [Last Taken ] metFORMIN HCL [Glucophage 500 mg (*)] 500 mg PO DAILY@12 01/27/17 [Last Taken ] - Smoking Hx Smoking Status: Never smoked - Family Anes Hx Family Hx Anesthesia Complications: NEG ANE Labs/Vital Signs - Vital Signs Height: 157.48 cm Weight: 121.563 kg ANE Physical Exam - Airway Neck exam: decreased ROM Mallampati Score: Class 3 Mouth exam: normal dental/mouth exam - Pulmonary Pulmonary: no respiratory distress - Cardiovascular Cardiovascular: regular rate and rhythym - ASA Status ASA Status: III ANE Anesthesia Plan Anesthesia Plan: general endotracheal anesthesia
[~2017-01-31 07:20] MED LIST: CLINDAMYCIN 900 MG/DEXTROSE 50 ML IV ONE
[2017-01-31] MEDS ORDERED: BUPIVACAINE 0.5% 30 ML SDV ONE (08:13)
--- NOTE | 2017-01-31 08:25 | PDGENHP ---
History & Physical Chief Complaint: left 2nd and 2rd MT fx, 1st mt dislocation History of Present Illness: Above injury las week, felt crunching and was admitted for swelling, swelling has improved since being nwb Pertinent Past, Social, Family History: DM Relevant Physical Exam: left leg in splint. heart rrr. lungs clear Cardiorespiratory Assessment: left diabetic nueropathinc fx. OR for orif 2-3 MT and fusion 1st tmt
[2017-01-31] MEDS ORDERED: SCOPOLAMINE HYDROBROMIDE 1.5 MG PATCH TD SCH (08:30)
[2017-01-31] MEDS ORDERED: fentaNYL 100 MCG/2 ML INJ ONE ×3 (08:31→11:27)
[2017-01-31] MEDS ORDERED: PROPOFOL/EMULSION 500 MG/50 ML BOTTLE IV ONE (08:31)
[2017-01-31] MEDS ORDERED: MIDAZOLAM 2 MG/2 ML VIAL ONE (08:46)
[2017-01-31] MEDS ORDERED: epHEDrine SULFATE 10 MG/ML SYR ONE (09:10)
[2017-01-31] MEDS ORDERED: ROCURONIUM 100 MG/10 ML VIAL ONE (09:10)
[2017-01-31] MEDS ORDERED: LIDOCAINE 2% 5 ML SDV ONE (09:11)
[2017-01-31] MEDS ORDERED: DEXAMETHASONE 4 MG/ML VIAL ONE (09:21)
[2017-01-31] MEDS ORDERED: ONDANSETRON 4 MG/2 ML VIAL ONE (09:22)
[2017-01-31] MEDS ORDERED: INSULIN REGULAR HUMAN 100 UNIT/ML ONE ×2 (10:00→16:00)
--- NOTE | 2017-01-31 11:03 | POSTOPPROG ---
Post Op Note Date of Operation: 01/31/17 Surgeon: Joe Carlin Drop Wire Hanger: Jeramy Anesthesia: GET(General Endotracheal) Pre-op Diagnosis: left foot fractures Post-op Diagnosis: same Indication: above Procedure: orif 2-3 MT fx, lapidus Inf/Abcess present in the surg proc area at time of surgery?: No EBL: Minimal
[2017-01-31] MEDS ORDERED: PROMETHAZINE HCL 25 MG/ML INJ IVP PRN ×2 (11:06→15:32)
[2017-01-31] MEDS ORDERED: LABETALOL HCL 50 MG/10 ML SYR IVP PRN (11:06)
[2017-01-31] MEDS ORDERED: NALOXONE HCL 0.4 MG/ML INJ IVP PRN (11:06)
[2017-01-31] MEDS ORDERED: LR 500 ML IV PRN (11:06)
[2017-01-31] MEDS: fentaNYL 100 MCG/2 ML INJ IVP PRN ×2 (11:29→11:40)
[2017-01-31] MEDS ORDERED: OXYCODONE/APAP 5/325 TAB PO ONE (12:12)
--- NOTE | 2017-01-31 12:12 | GOP ---
[f rep st] OPERATIVE REPORT DATE OF OPERATION: 01/31/2017 SURGEON: Joe Carlin MD COLLECTIONS PROFESSIONAL: Min Deshpande SA. ANESTHESIA: General. PREOPERATIVE DIAGNOSIS: 1. 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 2. 1st tarsal metatarsal dislocation. POSTOPERATIVE DIAGNOSIS: 1. 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 2. 1st tarsal metatarsal dislocation. PROCEDURE PERFORMED: 1. Open reduction and internal fixation of left 2nd metatarsal. 2. Open reduction and internal fixation of left 3rd metatarsal. 3. Plantar Lapidus procedure. IMPLANTS: Two Arthrex 0.24 metatarsal plates and plantar Lapidus plates, with locking and nonlockin g screws. FINDINGS: SPECIMENS: None. CONDITION: Stable. ESTIMATED BLOOD LOSS: 5 mL. INDICATIONS: This is a diabetic neuropathic 61-year-old who sustained these fractures at some point in the past. She is not sure when she sustained them. She came in for swelling, erythema and pres umed cellulitis. She felt crunching in her foot. She was admitted to the hospital and then dischar ged after swelling was under better control. I saw her back as an outpatient. She achieved better swelling with nonweightbearing. We counseled about the risks and benefits of surgery to fix this, and she elected to proceed. We di scussed risks of nonunion, malunion, need for prolonged nonweightbearing, Charcot arthropathy, wound infection, wound problems, ulceration, potential amputation, and she elected to proceed. Informed consent was obtained. All questions were answered. She was marked preoperatively. DESCRIPTION OF PROCEDURE: She was taken to the operative suite. General anesthesia was induced. S he was positioned, sterilely prepped and draped in the normal fashion. A time-out was performed, ve rifying the site, side and location, which was agreed by the team. An incision was made between the 2nd and 3rd metatarsal shaft. We dissected down to these protectin g neurovascular structures. These were widely displaced. There was some significant callus formati on. I think these fractures were older than 1 week. We debrided callus on these. We were able to reduce the fractures to pin them. I then bridge-plated them with T plates from Arthrex and created a locking bridge construct and bone grafted these. I then turned my attention medially and made an incision medial to the 1st tarsal metatarsal joint. I dissected down to this to protect the tibialis anterior, exposed the joint and distracted this. I prepared the joint for fusion with a saw and rongeur. I placed a bone graft in this. I then comp ressed this together and held this with a K-wire provisionally. I placed a plantar Lapidus plate, p laced locking screws distally and then used the lag screw to bring this into compression. I then pu t the lag screws in proximally. I then bone grafted further the metatarsal fractures. We took final x-rays and were happy with the hardware position of the bones. We then irrigated this. Closed with 0 Vicryl, 2-0 Vicryl, and 3-0 nylon. Placed an antimicrobial d ressing as well as split. She was taken to the PACU in stable condition. COMPLICATIONS: None. DRAINS: None. /[id number]/MODL
[2017-01-31] MEDS ORDERED: INSULIN REGULAR HUMAN 100 UNIT/ML SC ONE ×3 (12:13→15:47)
[2017-01-31] MEDS ORDERED: KETOROLAC 30 MG/1 ML SDV IVP ONE (12:13)
[2017-01-31] MEDS ORDERED: KETOROLAC 30 MG/1 ML SDV ONE (12:32)
[2017-01-31] MEDS ORDERED: OXYCODONE/APAP 5/325 TAB ONE (15:22)
[2017-01-31] MEDS ORDERED: HYDROmorphONE/DILAUDID 2 MG/ML INJ IVP PRN (15:32)
[2017-01-31] MEDS ORDERED: CALCIUM CARBONATE 500 MG CHEWABLE TAB PO PRN (15:37)
[2017-01-31] MEDS ORDERED: D50W 25 GM/50 ML SYR IVP PRN (15:44)
[2017-01-31] MEDS: oxyCODONE IR 5 MG TAB PO PRN ×2 (18:04→22:50)
[2017-01-31] MEDS: INSULIN LISPRO 100 UNIT/ML SC SCH (19:11)
[2017-01-31] MEDS: glipiZIDE 10 MG TAB PO SCH (22:38)
[2017-01-31] MEDS: CITALOPRAM 20 MG TAB PO SCH (22:38)
[2017-01-31] MEDS: ROSUVASTATIN CALCIUM 40 MG TAB PO SCH (22:39)
[2017-01-31] MEDS: TRIAMTERENE/HCTZ 37.5/25 1 EACH TAB PO SCH (22:43)
[2017-02-01] MEDS: BISOPROLOL FUMARATE 5 MG TAB PO SCH ×2 (00:51→20:29)
--- NOTE | 2017-02-01 07:30 | SOAPPROG ---
SOAP Progress Note Assessment/Plan: Assessment: left nueroathic fx Plan: s/p orif and fusion nwb lle home today 02/01/17 07:29 Subjective: pain in left foot Objective: Vital Signs Temp Pulse Resp BP Pulse Ox 36.8 C 77 16 90/46 L 97 02/01/17 04:00 02/01/17 04:00 02/01/17 04:00 02/01/17 04:00 02/01/17 04:00 01/31/17 02/01/17 02/02/17 05:59 05:59 05:59 Intake Total 2560 Output Total 500 Balance 2060 splint dry ICD10 Worksheet Patient Problems: Problems Problem Status Onset Cellulitis of left foot Acute Metatarsal fracture Acute
[2017-02-01] MEDS: oxyCODONE IR 5 MG TAB PO PRN ×5 (08:34→20:30)
[2017-02-01] MEDS: ENOXAPARIN 40 MG/0.4 ML SYR SC SCH (08:36)
[2017-02-01] MEDS: INSULIN LISPRO 100 UNIT/ML SC SCH ×4 (08:41→18:39)
[2017-02-01] MEDS: glipiZIDE 10 MG TAB PO SCH ×2 (08:42→20:32)
--- NOTE | 2017-02-01 11:51 | GDS ---
[f rep st] DISCHARGE SUMMARY HOSPITAL COURSE: She was admitted after a foot surgery for an ORIF of her left 2nd and 3rd metatarsals, and a 1st and RT MP fusion for pain control and somnolence. Her pain did improve some overnight. She is able to work with physical therapy who recomended a SNF. She did get mildly hypotensive, but this was able to improve. She met criteria for discharge. DISPOSITION: SNF CONDITION AT DISCHARGE: Stable. CONSULTING PHYSICIANS: None. PROCEDURES: ORIF left 2nd and 3rd metatarsal, and fusion of 1st tarsal metatarsal joint. DISCHARGE MEDICATIONS: Prescriptions for pain medicine for oxycodone, Ultram, as well as Phenergan for nausea. She was started on her previous home medications. DISCHARGE INSTRUCTIONS: She will follow up with her regular doctor to re- evaluate her diabetic control. She will call or come back to the hospital if she has chest pain, shortness of breath, lightheadedness, wound drainage, fevers or other concerns. She will follow up with me in the clinic in 1 week for a wound check. /[id number]/MODL MTDD
[2017-02-01] MEDS ORDERED: MAGNESIUM HYDROXIDE 30 ML UDCUP PO PRN (19:28)
[2017-02-01] MEDS ORDERED: BISACODYL 10 MG SUPP PR PRN (19:28)
[2017-02-01] MEDS ORDERED: LACTULOSE 20 GM/30 ML UDCUP PO PRN (19:28)
[2017-02-01] MEDS: TRIAMTERENE/HCTZ 37.5/25 1 EACH TAB PO SCH (20:27)
[2017-02-01] MEDS: CITALOPRAM 20 MG TAB PO SCH (20:31)
[2017-02-01] MEDS: ROSUVASTATIN CALCIUM 40 MG TAB PO SCH (20:31)
[2017-02-01] MEDS: POLYETHYLENE GLYCOL 3350 17 GM PKT PO PRN (20:32)
[2017-02-01] MEDS: SENNOSIDES/DOCUSATE SODIUM TAB PO SCH (20:32)
[2017-02-02] MEDS: oxyCODONE IR 5 MG TAB PO PRN ×4 (05:58→16:44)
[2017-02-02] MEDS: ENOXAPARIN 40 MG/0.4 ML SYR SC SCH (07:59)
[2017-02-02] MEDS: SENNOSIDES/DOCUSATE SODIUM TAB PO SCH (07:59)
[2017-02-02] MEDS: POLYETHYLENE GLYCOL 3350 17 GM PKT PO PRN (08:01)
[2017-02-02] MEDS: glipiZIDE 10 MG TAB PO SCH (08:02)
--- NOTE | 2017-02-02 08:25 | PDIAF ---
- Diagnosis Code Status: Full Code - Medication Management Discharge Medications: Medications to Continue on Transfer Bisoprolol Fumarate 10 mg PO HS 10/05/12 [Last Taken 01/30/17 21:00] Calcium Carbonate [Tums 500MG (*)] 500 mg PO DAILY PRN 10/05/12 [Last Taken ] Acetaminophen [Tylenol ES 500 mg (*)] 500 mg PO DAILY PRN 01/27/17 [Last Taken 01/24/17] Citalopram Hydrobromide [Citalopram HBr] 40 mg PO HS 01/27/17 [Last Taken ] Rosuvastatin Calcium [Crestor 40mg (*)] 40 mg PO HS 01/27/17 [Last Taken ] Triamterene/Hydrochlorothiazid [Triamterene-Hctz 37.5-25 mg Tb] 1 each PO HS [Last Taken 01/30/17] glipiZIDE [Glucotrol] 20 mg PO BID 01/27/17 [Last Taken 01/30/17] metFORMIN HCL [Glucophage 1000 mg] 1,000 mg PO BIDMEAL 01/27/17 [Last Taken ] metFORMIN HCL [Glucophage 500 mg (*)] 500 mg PO DAILY@12 01/27/17 [Last Taken ] Promethazine HCl [Phenergan 12.5mg tab] 12.5 mg PO Q12 PRN #30 tablet 01/31/17 [ Last Taken Unknown] Discharge Medications: Refer to the Discharge Home Medication list for PRN reason. - Orders Services needed: Registered Nurse, Certified Aerial Installer, Physical Therapy, Occupational Therapy Diet Recommendation: no restrictions on diet Diet Texture: Regular Texture Diet Wound Care Instructions: leave in splint Activity/Weight Bearing Restrictions: non wt bearing left lower extremity - Follow Up Care Current Providers and Referrals: Tamara Jama MD [Primary Care Provider] -
--- NOTE | 2017-02-02 08:26 | SOAPPROG ---
SOAP Progress Note Assessment/Plan: Assessment: left nueroathic fx Plan: s/p orif and fusion nwb lle PT recomened snf, unable to get approval yesterday will try for d/c to snf today 02/01/17 07:29 02/02/17 08:25 Subjective: pain better Objective: Vital Signs Temp Pulse Resp BP Pulse Ox 37.6 C 73 16 117/56 L 95 02/01/17 23:18 02/01/17 23:18 02/01/17 23:18 02/01/17 23:18 02/01/17 23:18 02/01/17 02/02/17 02/03/17 05:59 05:59 05:59 Intake Total 2560 400 Output Total 500 1050 Balance 2060 -650 splint intact ICD10 Worksheet Patient Problems: Problems Problem Status Onset Cellulitis of left foot Acute Metatarsal fracture Acute
[2017-02-02 08:44] VITALS: BP 123/67; PULSE 72; RESP 12; TEMP 98.6; O2SAT 94
[2017-02-02] MEDS: INSULIN LISPRO 100 UNIT/ML SC SCH ×3 (09:47→16:55)
[2017-02-02] MEDS ORDERED: ACETAMINOPHEN 325 MG TAB ONE (13:36)
[2017-02-02] MEDS ORDERED: ACETAMINOPHEN 325 MG TAB PO PRN (13:39)
--- NOTE | 2017-02-02 17:16 | PDIAF ---
- Diagnosis Code Status: Full Code - Medication Management Discharge Medications: Medications to Continue on Transfer Bisoprolol Fumarate 10 mg PO HS 10/05/12 [Last Taken 01/30/17 21:00] Calcium Carbonate [Tums 500MG (*)] 500 mg PO DAILY PRN 10/05/12 [Last Taken ] Acetaminophen [Tylenol ES 500 mg (*)] 500 mg PO DAILY PRN 01/27/17 [Last Taken 01/24/17] Citalopram Hydrobromide [Citalopram HBr] 40 mg PO HS 01/27/17 [Last Taken ] Rosuvastatin Calcium [Crestor 40mg (*)] 40 mg PO HS 01/27/17 [Last Taken ] Triamterene/Hydrochlorothiazid [Triamterene-Hctz 37.5-25 mg Tb] 1 each PO HS [Last Taken 01/30/17] glipiZIDE [Glucotrol] 20 mg PO BID 01/27/17 [Last Taken 01/30/17] metFORMIN HCL [Glucophage 1000 mg] 1,000 mg PO BIDMEAL 01/27/17 [Last Taken ] metFORMIN HCL [Glucophage 500 mg (*)] 500 mg PO DAILY@12 01/27/17 [Last Taken ] Promethazine HCl [Phenergan 12.5mg tab] 12.5 mg PO Q12 PRN #30 tablet 01/31/17 [ Last Taken Unknown] HYDROmorphone HCL [Dilaudid Inj 2 mg/ml (*)] 0.2 - 0.4 mg IVP Q1HR PRN #0 inj [Last Taken Unknown] Insulin Lispro [humALOG LISPRO 100 units/ml (*)] 0 unit SC TIDMEAL #0 unit 02/02 [Last Taken Unknown] Polyethylene Glycol 3350 [Miralax 17 gm (*)] 17 gm PO DAILY PRN #0 pkt 02/02/17 [Last Taken Unknown] Promethazine HCl [Phenergan Injection] 12.5 mg IVP Q4HRS PRN #0 inj 02/02/17 [ Last Taken Unknown] Sennosides/Docusate Sodium [Senokot-S] 1 - 2 tab PO BID #0 tab 02/02/17 [Last Taken Unknown] oxyCODONE IR [Oxycodone Ir (*)] 5 - 10 mg PO Q4HRS PRN #0 tab 02/02/17 [Last Taken Unknown] Discharge Medications: Refer to the Discharge Home Medication list for PRN reason. - Orders Services needed: Registered Nurse, Certified Database Reporting Consultant, Physical Therapy, Occupational Therapy Diet Recommendation: no restrictions on diet Diet Texture: Regular Texture Diet Wound Care Instructions: leave in splint Activity/Weight Bearing Restrictions: non wt bearing left lower extremity - Follow Up Care Current Providers and Referrals: Tamara Jama MD [Primary Care Provider] -
== END 2017-02-02 19:38 ==
LOC: FSGY 07:20 → F3N 15:32
PROVIDERS: ADMIT Orthopaedic Surgery; ATTEND Orthopaedic Surgery
PROC: 0QSP04Z Reposition Left Metatarsal with Internal Fixation Device, Open Approach (ICD-10-PCS; principal; 2017-01-31 08:30)
PROC: 0SGL04Z Fusion of Left Tarsometatarsal Joint with Internal Fixation Device, Open Approach (ICD-10-PCS; principal; 2017-01-31 08:30)
DX: S92.322A Displaced fracture of second metatarsal bone, left foot, initial encounter for closed fracture (principal); S92.332A Displaced fracture of third metatarsal bone, left foot, initial encounter for closed fracture; S93.315A Dislocation of tarsal joint of left foot, initial encounter; E11.610 Type 2 diabetes mellitus with diabetic neuropathic arthropathy; L03.116 Cellulitis of left lower limb; I10 Essential (primary) hypertension; E78.5 Hyperlipidemia, unspecified
CPT/HCPCS: 28485; 28740; 97162; 97166; 97530; 97535; C1769; G0378; G8978; G8979; C1713; C1762; J1100; J1170; J1650; J1815; J1885; J2250; J2405; J2704; J3010